=== PATIENT | female | born 1975 | race African-American/Black ===

== ENCOUNTER 2018-02-07 10:33 | Emergency (ER) | payer SELFPAY ==
[2018-02-07] MEDS ORDERED: LORazepam 1 MG TABLET ONE (10:57)
[2018-02-07] MEDS ORDERED: LORazepam 1 MG TABLET PO ONE (11:00)
--- NOTE | 2018-02-07 11:03 | PHYS DOC ---
Past Medical History Additional Past Medical Histor: Mental health disorders: Manic, PTSD Past Medical History PMH limited due to patient uncooperative Past Surgical History PSH limited due to patient uncooperative Social History Social history limited due to patient uncooperative. Adult General Chief Complaint Chief Complaint: MANIC BEHAVIOR HPI HPI 42-year-old female presents with report of "I'm in a manic state and I need some help". Patient reports she had previously been diagnosed with for psychiatric disorders including christoph and PTSD. Patient reports she had previously been on some medication but is no longer taking anything. Reports she feels like she is in a manic state at this time. Patient reports she needs a psychiatric professional. Denies any suicidal ideation. HPI limited as patient reports she will not answer questions at this time until she gets some help. Review of Systems Review of Systems Psychiatric: Reports christoph; denies suicidal or homicidal ideation ROS limited due to patient being uncooperative. Current Medications Current Medications Current Medications Medications (Trade) Dose Ordered Sig/Mallory Start Time Stop Time Status Last Admin Dose Admin Lorazepam (Ativan) 1 mg STK-MED ONCE 02/07/18 10:57 02/07/18 10:58 DC Allergies Allergies Allergies Coded Allergies Type Severity Reaction Last Updated Verified No Known Drug Allergies 02/07/18 No Physical Exam Physical Exam Constitutional: Well developed, well nourished, no acute distress, anxious, hyperverbal, agitated HENT: Normocephalic, atraumatic Eyes: Conjunctiva normal, no discharge. [] Neck: Normal range of motion, no tenderness Lungs & Thorax: No distress, no audible wheezing Skin: Warm, dry Extremities: No tenderness, gait stable Neurologic: Alert and oriented X 3, no focal deficits noted. [] Psychologic: Anxious, hyperverbal, agitated, Denies suicidal ideation[] EKG EKG [] Radiology/Procedures Radiology/Procedures [] Course & Med Decision Making Course & Med Decision Making Pertinent Labs reviewed. (See chart for details) Patient presents in hyperverbal manic state reporting that she needs some help. Patient belligerent and agitated. Patient reports she will not answer any questions until she has gotten something to help her. Patient requesting psychiatric assessment. Denies suicidal ideation. Ativan by mouth provided. Labs ordered. PAT team consultation ordered. Patient manipulative and reporting that she "better get some help now." Patient making vague threats. Security notified. Patient continued to be belligerent and making threats. Discussed over phone with PAT team- Buster, and reports patient was recently at [facility] and reportedly didn't want to stay to get help earlier today. Reports Portia, PAT team support associate, was on her way in to see patient. Tried to notify patient regarding situation. Patient continued to make threats. Concern for safety as patient keep looking at her purse. Security asked patient to evaluate content of patient's purse. Patient subsequently elected to elope. Stable gait. Dragon Disclaimer Dragon Disclaimer This electronic medical record was generated, in whole or in part, using a voice recognition dictation system. Departure Departure Impression: Primary Impression: Christoph Disposition: 07 AGAINST MEDICAL ADVICE (Elopement) Condition: STABLE DEONDRE WHITESIDE DO Feb 07, 2018 11:03
== END 2018-02-07 11:15 | disposition left against medical advice (07) ==
LOC: ER 10:33
DX: F30.9 Manic episode, unspecified (principal); F43.10 Post-traumatic stress disorder, unspecified
CPT/HCPCS: 99282; 99284